=== PATIENT | female | born 1995 | race Caucasian/White ===

== ENCOUNTER 2020-06-06 07:40 | Emergency (ER) | payer BC, SELFPAY ==
--- NOTE | 2020-06-06 07:45 | ED_ITS ---
HPI - Eye Problem General Chief complaint: Eye Problems Stated complaint: left eye pain Time Seen by Provider: 06/06/20 07:44 History of Present Illness HPI Narrative: Awoke from sleep this morning with pain and conjunctival injection in the left eye. No vision change. No pain with eye movement. She just had fake nails put on with sharp points and suspects she may have scratched herself in her sleep. Related Data Home Medications Medication Instructions Recorded Confirmed naltrexone 50 mg 06/06/20 Allergies Allergy/AdvReac Type Severity Reaction Status Date / Time No Known Allergies Allergy Verified 06/06/20 08:05 Review of Systems Review of Systems: All systems reviewed & are unremarkable except as noted in HPI and below PMFSH Social History Social History Smoking status: Never smoker Gender identity (if verbalized by the patient): Female Exam Const: General: healthy appearing, no acute distress and alert Orientation/consciousness: patient oriented x3 HENMT: Head: normal to inspection Eyes: Conjunctivae: conjunctival abnormality left conjunctival injection diffuse Pupils: Equal, round and reactive pupils present Other: Moderate area of flurocine uptake over left inferior lateral cornea Course Vital Signs Vital signs: Vital Signs Temperature 37.0 C 06/06/20 07:54 Pulse Rate 80 06/06/20 07:54 Respiratory Rate 16 06/06/20 07:54 Blood Pressure 110/95 H 06/06/20 07:54 Pulse Oximetry 98 06/06/20 07:54 Temperature 37.0 C 06/06/20 07:54 Pulse Rate 80 06/06/20 07:54 Respiratory Rate 16 06/06/20 07:54 Blood Pressure 110/95 H 06/06/20 07:54 Pulse Oximetry 98 06/06/20 07:54 MDM - Eye Problem Differential Diagnosis Differential diagnosis: Likely corneal abrasion Medical Records Attestation: I reviewed the patient's medical records. Discharge Plan Discharge Clinical Impression: Corneal abrasion Patient Disposition: Home, Self-Care Condition: Stable Instructions: Antibiotic Form, Corneal Abrasion (ED) Prescriptions: New ibuprofen 600 mg tablet 600 mg PO QID Qty: 10 RF: 0 erythromycin 5 mg/gram (0.5 %) ointment 0.5 inch EACH EYE QID 5 Days Qty: 3.5 RF: 0 tramadol 50 mg tablet 50 mg PO Q6H PRN (Reason: pain) Qty: 10 RF: 0 No Action naltrexone 50 mg tablet 50 mg RF: 0 Follow-up/Referrals: PHYSICIAN,[facility] [Primary Care Provider] - Ajay Lake MD [Physician] - Discharge Date/Time: 06/06/20 08:54
[2020-06-06 07:54] VITALS: BP 110/95; PULSE 80; RESP 16; TEMP 37; O2SAT 98
== END 2020-06-06 08:54 | disposition home or self-care (01) ==
PROVIDERS: Emergency Provider Emergency Medicine
DX: S05.02XA Injury of conjunctiva and corneal abrasion without foreign body, left eye, initial encounter (principal); W22.8XXA Striking against or struck by other objects, initial encounter
CPT/HCPCS: 99283; A9270

== ENCOUNTER 2022-03-27 02:44 | Emergency (ER) | payer OTHER, BC, SELFPAY ==
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
--- NOTE | ~2022-03-27 | XR_ITS ---
EXAMINATION: XR hand LT 2V DATE: 03/27/2022 05:55 INDICATION: Left hand pain post fall. TECHNIQUE: Posteroanterior, oblique and lateral views of the left hand were obtained. COMPARISON: None. FINDINGS: Alignment is normal. No fracture. Joint spaces are normal. Soft tissues are unremarkable. IMPRESSION: 1. Negative left hand radiographs. Reviewed, dictated and finalized at location A.
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
[2022-03-27 02:50] VITALS: PULSE 108; RESP 18; TEMP 36.7; O2SAT 97
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
--- NOTE | 2022-03-27 02:54 | ECG_ITS ---
Measurements Intervals [place] Rate: 77 P: 71 TN: 335 QRS: -30 QRSD: 110 T: -5 QT: 384 QTc: 437 Interpretive Statements SINUS RHYTHM WITH FIRST DEGREE AV BLOCK DELAYED PRECORDIAL R/S TRANSITION BORDERLINE T WAVE ABNORMALITY- ANTERIOR LEADS ABNORMAL ECG Electronically Signed On 03-27-2022 11:54:56 CDT by Jose Chavez D.O.
--- NOTE | 2022-03-27 03:07 | PC.NURSE ---
pt refusing to let RN start IV to obtain blood. she also refuses to void into cup or let RN to straight cath. pt also refuses to cooperate with police for DUI kit. pt cursing very loudly
[2022-03-27] MEDS: SODIUM CHLORIDE 0.9% IV 1,000 ML 999 ML IV CONT (05:09)
[2022-03-27] MEDS: ONDANSETRON INJ 4 MG/2 ML VIAL IV PUSH (05:09)
[2022-03-27 05:38] LABS: Basophils Absolute Auto 0.1 K/mm3 (0.0-0.1); Basophils Percent Auto 0.6 % (0.2-1.2); Eosinophils Absolute Auto 0.1 K/mm3 (0-0.3); Eosinophils Percent Auto 0.7 % (0-4.4); Hematocrit 44.4 % (37.0-47.0); Hemoglobin 14.9 g/dL (12.0-15.0); Immature Granulocyte Absolute 0.04 K/mm3 (0.00-0.031); Immature Granulocyte Percent A 0.4 % (0-0.5); Lymphocytes Absolute Auto 2.27 K/mm3 (0.9-3.2); Lymphocytes Percent Auto 20.4 % (18.3-44.2); Mean Corpuscular HGB Conc 33.6 g/dl (32-36); Mean Corpuscular Hemoglobin 31.9 pg (26-34); Mean Corpuscular Volume 95.1 fl (80-100); Mean Platelet Volume 9.6 fl (7.4-10.4); Monocytes Absolute Auto 0.8 K/mm3 (0.1-0.6); Monocytes Percent Auto 6.8 % (2.6-8.5); Neutrophils Absolute Auto 7.9 K/mm3 (1.3-6.7); Neutrophils Percent Auto 71.1 % (45.5-73.1); Platelet Count Result 339 k/mm3 (150-375); Red Blood Count 4.67 M/mm3 (4.2-5.4); Red Cell Distribution Width 12.6 % (11.5-14.5); White Blood Count 11.1 K/mm3 (4.5-10.0)
[2022-03-27 05:39] LABS: Appearance Urine Clear (Clear); Bilirubin Urine Negative (Negative); Color Urine Yellow (Yellow); Glucose Urine UA Negative (Negative); Ketones Urine Negative (Negative); Leukocyte Esterase Ur Negative LEU/UL (Negative); Nitrate Urine Negative (Negative); Protein Urine Negative (Negative); Specific Grav Ur 1.015 (1.001-1.035); Urobilinogen Urine 0.2 mg/dL (<2.0)
[2022-03-27 05:44] LABS: Mucus Urine Rare /lpf; RBC Urine 0-2 /hpf (0-2); Squamous Epithelial Cell Urine Rare /hpf (Few); WBC Urine 0-3 /hpf
[2022-03-27 05:49] LABS: Alanine Aminotransferase 13 U/L (4-35); Albumin Level 5.2 g/dL (3.5-5.1); Alkaline Phosphatase 79 U/L (38-126); Anion Gap 13 mmol/L (8-16); Aspartate Amino Transferase 31 U/L (14-36); Bilirubin,Total 0.2 mg/dL (0.2-1.3); Blood Urea Nitrogen 8 mg/dL (7-17); Carbon Dioxide 21 mmol/L (22-30); Chloride 110 mmol/L (98-107); Estimated Glomerular Filt Rate > 60; Glucose 109 mg/dL (65-110); Lipase 95 U/L (23-300); Potassium 3.8 mmol/L (3.4-5.0); Sodium 144 mmol/L (137-145)
[2022-03-27 05:52] LABS: Acetaminophen < 10 ug/mL (10-30); Ethanol 259 mg/dL (<10); Salicylate < 1.0 mg/dL (2-20)
[2022-03-27 06:00] LABS: Amphetamine Screen Urine Negative (Negative); Barbiturate Screen Urine Negative (Negative); Benzodiazepines Screen Urine Negative (Negative); Cannabinoid Screen Urine Positive (Negative); Cocaine Screen Urine Negative (Negative); Methadone Screen Urine Negative (Negative); Opiate Screen Urine Negative (Negative); Phencyclidine Screen Urine Negative (Negative)
[2022-03-27 06:36] LABS: Add Urine Microscopic? YES; Blood Urine Trace-Intact (Negative)
[2022-03-27 06:36] LABS: Pregnancy On Board Control Positive; Urine Pregnancy Test Negative
--- NOTE | 2022-03-27 06:36 | PC.NURSE ---
Patient dashed out department through ambulance bay. Margarita MULTANI contacted.
--- NOTE | 2022-03-27 06:36 | PC.NURSE ---
0620- Pt refusing to stay in ER. pulled out IV while Rn and ERP at bedside. requesting to call mother. Mother returned call and spoke with ERP about treatment plan. Pt pouring water on the floor, continues to be uncooperative with ER staff. 0630- ERP ordered Ativan/ Haldol/ Benadryl, RN cherise up meds and pt placed into room 15 for safety. While staff standing around pt, pt refusing to take medications willingly. Pt ran passed staff and security out of the EMS entrance out into the rain and into parking lot. ld WATSON Called [place] Police to notify that pt had eloped from the ER, ERP Dr. oSlis did speak with police about pt elopement and being medically cleared for police custody. 0650-RN called Kate Chen- Mother to inform her that pt had eloped from the ER and that [place] [employer] has been contacted. PT left police paperwork and tickets in the room. will be placed in envelope in triage with pt and mothers name for pickup. no other questions voiced at this time.
--- NOTE | 2022-03-27 06:39 | PC.NURSE ---
Dr. Solis on phone with dispatch.
--- NOTE | 2022-03-27 10:20 | PC.NURSE ---
Mom, Kate, called to ask if pt backpack was in dept. Mom did come to retrieve envelope from ED, but didn't think to ask if any of pt belongings were still here. This RN checked the designated locked cabinets for pt belongings and room pt was in - backpack was not found. Mom reports that pt found someone to let her use their phone and was able to contact mom. Mom states that pt is now under her care and sleeping comfortably. Mom also shared that pt has an appt with her psychiatrist within the next 2 weeks and her mental state has improved greatly since returning home. Mom thankful for care staff provided.
== END 2022-03-27 06:36 | disposition left against medical advice (07) ==
PROVIDERS: Emergency Provider Emergency Medicine
DX: F10.10 Alcohol abuse, uncomplicated (principal); F12.10 Cannabis abuse, uncomplicated; Y90.8 Blood alcohol level of 240 mg/100 ml or more; S00.81XA Abrasion of other part of head, initial encounter; S60.512A Abrasion of left hand, initial encounter; S60.511A Abrasion of right hand, initial encounter; R45.89 Other symptoms and signs involving emotional state; I44.0 Atrioventricular block, first degree; R94.31 Abnormal electrocardiogram [ECG] [EKG]; V48.5XXA Car driver injured in noncollision transport accident in traffic accident, initial encounter
CPT/HCPCS: 36415; 70450; 70486; 71046; 72125; 73120; 80053; 80307; 81001; 81025; 83690; 85025; 93005; 96361; 96374; 99284; J1200; J1630; J2060; J2405; J7030

== ENCOUNTER 2022-07-03 10:16 | Emergency (ER) | payer OTHER, SELFPAY ==
[2022-07-03 10:34] VITALS: BP 111/68; PULSE 71; RESP 16; TEMP 36.7; O2SAT 99
--- NOTE | 2022-07-03 11:15 | ED.URI ---
HPI - URI/Sore Throat General Chief Complaint: Upper Respiratory Infection Stated Complaint: Sore Throat,Runny Nose,Bilateral Ear Irritation Time Seen by Provider: 07/03/22 11:15 History of Present Illness HPI Narrative: Fatimah Chen is a 26 yo female with no PMH who comes to express care with congestion, sore throat that started a week ago and last 2 days has worsened. She denies nausea vomiting or diarrhea and states that she has not taken her temperature but her throat is gotten worse states he left when she tried to swallow and her ear started to hurt Related Data Home Medications Medication Instructions Recorded Confirmed lamotrigine 100 mg tablet 100 mg PO DAILY 07/03/22 07/03/22 levonorgestrel 20 mcg/24 hours (7 See Rx Instructions .Route .COMPLEX 07/03/22 07/03/22 yrs) 52 mg intrauterine device (Mirena) trazodone 50 mg tablet 50 mg PO HS 07/03/22 07/03/22 Allergies Allergy/AdvReac Type Severity Reaction Status Date / Time No Known Allergies Allergy Verified 07/03/22 10:28 Review of Systems Review of Systems: CONSTITUTIONAL: Denies fever, chills, sweats. EYES: Denies visual changes, redness, discharge. ENT: Denies rhinorrhea, congestion, has sore throat, right otalgia.difficulty swallowing CARDIOVASCULAR: Denies chest pain, palpitations, edema. RESPIRATORY: Denies dyspnea, wheezing, cough GASTROINTESTINAL: Denies abdominal pain, nausea, vomiting, diarrhea. GENITOURINARY: Denies dysuria, hematuria, abnormal discharge SKIN: Denies rash or itching. NEUROLOGIC: Denies numbness, or focal weakness. PSYCHIATRIC: Denies anxiety or depression. PMFSH Past Medical History Medical History Bipolar disorder Social History Social History Smoking status: Never smoker Alcohol intake: current Substance use type: marijuana Gender identity (if verbalized by the patient): Female Comments At time of signature, I agree with nursing past medical, surgical, social and family history. There is no relevant family history pertinent to the presenting complaint. Exam Narrative: GENERAL: This is a well-nourished, well-developed patient, in mild distress. HEAD: normocephalic, atraumatic. EYES:. Sclera clear/white. Vision is grossly intact. EARS: External ears normal, auditory canals clear on L, erythema on R and without drainage, . Hearing grossly intact. NOSE: External nose normal without nasal discharge, nares without redness, no rhinorrhea. THROAT: Mucous membranes moist, posterior pharynx erythema with 1+ edema on L. Bilateral enlarged lymph nodes NECK: Neck supple, non-tender CARDIOVASCULAR: Regular rate and rhythm without murmurs, gallops, or rubs. RESPIRATORY: Clear to auscultation. Breath sounds equal bilaterally. No wheezes, rales, or rhonchi. GASTROINTESTINAL: not done SKIN: warm, intact with no suspicious lesions or rash, good texture and turgor. NEURO: awake, alert, and oriented to person, place and time. There were no obvious focal neurologic abnormalities. Steady gait EXTREMITIES: Normal range of motion. BACK: Nontender without deformity Course Course Emergency Course: pt comes to express care with sore throat strep and covid negative, started on amoxicillin Level of Care: Express Care Visit Vital Signs Vital signs: Vital Signs Temperature 98.0 F 07/03/22 10:34 Pulse Rate 71 07/03/22 10:34 Respiratory Rate 16 07/03/22 10:34 Blood Pressure 111/68 07/03/22 10:34 Pulse Oximetry 99 07/03/22 10:34 Oxygen Delivery Room Air 07/03/22 10:34 Temperature 98.0 F 07/03/22 10:34 Pulse Rate 71 07/03/22 10:34 Respiratory Rate 16 07/03/22 10:34 Blood Pressure 111/68 07/03/22 10:34 Pulse Oximetry 99 07/03/22 10:34 Oxygen Delivery Room Air 07/03/22 10:34 MDM - URI/Sore Throat Lab Data Labs: Lab Results 07/03/22 Range/Units 10:40
== END 2022-07-03 11:30 | disposition home or self-care (01) ==
PROVIDERS: Emergency Provider Nurse Practitioner
DX: R59.0 Localized enlarged lymph nodes (principal); Z20.822 Contact with and (suspected) exposure to COVID-19; F31.9 Bipolar disorder, unspecified
CPT/HCPCS: 87081; 87426; 87880; 99213; C9803; G0463

== ENCOUNTER 2023-04-12 08:43 | Emergency (ER) | payer OTHER, SELFPAY ==
[2023-04-12 08:58] VITALS: BP 116/78; PULSE 88; RESP 18; TEMP 36.8; O2SAT 99
--- NOTE | 2023-04-12 09:21 | ED.GENADULT ---
HPI - General Adult General Chief complaint: Nausea/Vomiting/Diarrhea Stated complaint: nausea/vomiting Time Seen by Provider: 04/12/23 09:22 Source: patient, RN notes reviewed and old records reviewed Mode of arrival: ambulatory Limitations: no limitations History of Present Illness HPI narrative: 27 year old female who presents to [facility] care with complaints of nausea and vomiting since 299. Patient admits that she drank too much alcohol last night and needs a noted for work today. Patient admits she sees psychiatrist and has been told she is an alcoholic, she states that she usually drinks alcohol once a week and doesn't usually over indulge. Patient reports that she was with her one friend last night and usually when she is with her she over indulges. Patient report that she smokes marijuana daily, she work at a dispensary. Patient reports that she has had 2 past DUI charges. MD complaint: nausea and vomiting Onset (ago): hour(s) (299) Treatments prior to arrival: other (clear liquids only) Related Data Home Medications Medication Instructions Recorded Confirmed lamotrigine 100 mg tablet 100 mg PO DAILY 07/03/22 04/12/23 levonorgestrel 21 mcg/24 hours (8 See Rx Instructions .Route .COMPLEX 07/03/22 04/12/23 yrs) 52 mg intrauterine device (Mirena) cariprazine 1.5 mg capsule 1.5 mg PO DAILY 04/12/23 04/12/23 (Vraylar) Allergies Allergy/AdvReac Type Severity Reaction Status Date / Time No Known Allergies Allergy Verified 04/12/23 09:03 Review of Systems Review of Systems: CONSTITUTIONAL: Denies fever, chills, or sweats. EYES: Denies visual changes, redness, or discharge. ENT: Denies rhinorrhea, congestion, sore throat, or otalgia. CARDIOVASCULAR: Denies chest pain, palpitations, or edema. RESPIRATORY: Denies cough or dyspnea. GASTROINTESTINAL: Denies abdominal pain, positive for nausea, vomiting, no diarrhea. GENITOURINARY: Denies dysuria or hematuria. SKIN: Denies rash or itching. MUSCULOSKELETAL: Denies back pain, joint pain, or myalgia. NEUROLOGIC: Reports headache, no numbness, or weakness. PSYCHIATRIC: Reports history of anxiety or depression. All systems reviewed & are unremarkable except as noted in HPI and below [facility] Past Medical History Medical History (Updated 04/12/23 @ 11:15 by Imani Parry NP) Alcohol abuse Bipolar disorder Bronchitis Pneumonia Family History Family History (Updated 04/12/23 @ 11:17 by Imani Parry NP) Grandparent Heart disease Hypertension Social History Social History Smoking status: Current every day smoker Tobacco type: e-cigarettes/vaping Alcohol intake: current Substance use type: marijuana Gender identity (if verbalized by the patient): Female Comments At time of signature, agree with nursing past medical, surgical, social and family history. There is no relevant family history pertinent to the presenting complaint Exam Narrative: GENERAL: Well-appearing, well-nourished, and in no acute distress. HEAD: Normocephalic, atraumatic. EYES: PERRLA and EOMI. ENT: Nares clear, no rhinorrhea or epistaxis. Mucous membranes moist.TM's normal with good light reflex, throat pink with no lesions or exudates. NECK: Supple. no lymphadenopathy CHEST: Clear to auscultation. No respiratory distress. SAO2 99% on room air HEART: Regular rate and rhythm. No murmur heard. Normal peripheral pulses. ABDOMEN: Soft, nontender, nondistended, normal active bowel sounds.nausea and vomiting EXTREMITIES: Normal range of motion. No edema. SKIN: Warm, dry, no rash. NEURO: No focal deficits. Alert and oriented x3. Course Course Emergency Course: Patient is aware of diagnosis, understands and agrees to treatment plan.? Anticipatory guidance given.? Patient agrees to follow-up as directed and is aware of reasons to seek care at the emergency department. Portions of this record may have been cre
== END 2023-04-12 09:51 | disposition home or self-care (01) ==
PROVIDERS: Emergency Provider Registered Nurse
DX: R11.2 Nausea with vomiting, unspecified (principal); F17.290 Nicotine dependence, other tobacco product, uncomplicated; F12.90 Cannabis use, unspecified, uncomplicated
CPT/HCPCS: 99213; G0463